=== PATIENT | female | born 1975 | race Caucasian/White ===

== ENCOUNTER 2022-11-07 18:21 | Inpatient (IN) | payer BC, MEDICAID ==
[~2022-11-07] VITALS: Ht 172.7 cm; Wt 68.2 kg
[~2022-11-07 18:21] MED LIST: HYDR-4383 PO; PHEN-716 PO; SULF1TAB49 PO
[2022-11-07] MEDS ORDERED: LORazepam 1 MG tablet PO ONE (23:00)
[2022-11-07 23:37] LABS: BASOPHILS # (AUTO) 0.1 X10'3 (0-0.2); BASOPHILS % (AUTO) 0.6 % (0-1); EOSINOPHILS % (AUTO) 0.4 % (0-6); HEMATOCRIT 41.3 % (35.0-45.0); HEMOGLOBIN 13.8 g/dl (12.0-16.0); LYMPHOCYTES # (AUTO) 1.6 X10'3 (1.1-4.8); LYMPHOCYTES % (AUTO) 13.5 % (21-51); MEAN CORPUSCULAR HEMOGLOBIN 31.9 PG (27.0-31.0); MEAN CORPUSCULAR HGB CONC 33.5 g/dL (33.0-36.5); MEAN PLATELET VOLUME 7.9 FL (7.4-10.4); MONOCYTES # (AUTO) 0.7 X10'3 (0-0.9); NEUTROPHILS # (AUTO) 9.1 X10'3 (1.8-7.7); NEUTROPHILS % (AUTO) 79.5 % (42-75); PLATELET COUNT 306 X10'3 (140-440); RED BLOOD COUNT 4.34 X10'6 (4.20-5.60); RED CELL DISTRIBUTION WIDTH 14.3 % (11.5-14.5); WHITE BLOOD COUNT 11.5 X10'3 (4.5-11.0)
[2022-11-07 23:44] LABS: ALANINE AMINOTRANSFERASE 16 U/L (12-78); ALBUMIN 3.9 G/DL (3.4-5.0); ALKALINE PHOSPHATASE 50 IU/L (46-116); ANION GAP 8 (8-16); ASPARTATE AMINO TRANSFERASE 26 U/L (10-37); BILIRUBIN,TOTAL 0.4 MG/DL (0.1-1.0); BLOOD UREA NITROGEN 6 MG/DL (7-18); BUN/CREATININE RATIO 9.7 (10.0-20.0); CALCIUM 9.5 MG/DL (8.5-10.1); CHLORIDE 101 MMOL/L (99-107); CREATININE 0.62 MG/DL (0.40-0.90); GLUCOSE 112 MG/DL (70-104); POTASSIUM 3.6 MMOL/L (3.5-5.1); SODIUM 136 MMOL/L (135-145); TOTAL CARBON DIOXIDE 27.4 MMOL/L (24-32); TOTAL PROTEIN 7.9 G/DL (6.4-8.2); eCRCL 112 ML/MIN; eGFR > 90 ML/MIN
[2022-11-07 23:56] LABS: FREE T4 (FREE THYROXINE) 1.14 NG/DL (0.73-1.40); MAGNESIUM 1.8 MG/DL (1.5-2.4); THYROID STIMULATING HORMONE 1.72 ulU/ml (0.34-4.50)
[2022-11-08] MEDS ORDERED: aspirin 325mg tablet PO ONE (00:10)
--- NOTE | 2022-11-08 00:42 | NUR ---
dr torres at bedside.
[2022-11-08] MEDS ORDERED: heparin 10,000 units/1 ML INJ IV ONE ×2 (01:00→01:10)
[2022-11-08] MEDS: heparin 25,000 UNIT/250ml bag 250 ML IV PRN ×3 (01:45→23:03)
[2022-11-08 02:14] LABS: D-DIMER 0.34 MG/L FEU (0-0.50)
[2022-11-08] MEDS ORDERED: bisacodyl 10mg suppository rectal RC PRN (02:55)
[2022-11-08] MEDS ORDERED: HYDROcodone/acetaminophen 5mg/325mg tablet PO PRN (02:55)
[2022-11-08] MEDS ORDERED: diphenhydrAMINE 25mg capsule PO PRN (02:55)
[2022-11-08] MEDS ORDERED: morphine 2 MG/ML inj. syringe IV PRN ×2 (02:55)
[2022-11-08] MEDS ORDERED: ondansetron 4mg rapidly disintigrating tab PO PRN (02:55)
[2022-11-08] MEDS ORDERED: ondansetron/PF 4mg/2ml inj IV PRN (02:55)
[2022-11-08] MEDS ORDERED: acetaminophen 325mg tablet PO PRN ×2 (02:55)
[2022-11-08] MEDS ORDERED: magnesium hydroxide 30ml (MOM) UD suspension PO PRN (02:55)
[2022-11-08] MEDS ORDERED: mag hydrox/Alum hydrox/simeth 30ml oral suspension PO PRN (02:55)
[2022-11-08] MEDS ORDERED: metoclopramide 5 mg/ml inj IV PRN (02:55)
[2022-11-08] MEDS ORDERED: diphenhydrAMINE 50 mg/ml inj IV PRN (02:55)
[2022-11-08] MEDS ORDERED: HYDROcodone/acetaminophen 10/325mg tab PO PRN (02:55)
[2022-11-08] MEDS ORDERED: acetaminophen 650mg rectal suppository RC PRN (02:55)
[2022-11-08] MEDS ORDERED: NO HOME MEDS (03:01)
[2022-11-08] MEDS: normal saline 1000ml 1,000 ML IV SCH ×3 (03:20→22:55)
[2022-11-08] MEDS ORDERED: LORazepam 1 MG tablet PO ONE (03:45)
[2022-11-08 04:21] LABS: INR 1.1 INR
[2022-11-08 04:33] LABS: CREATINE KINASE 54 U/L (26-192); LIPASE < 50 U/L (73-393); PHOSPHORUS 3.4 MG/DL (2.3-4.5); PRO BRAIN NATRIURETIC PEPTIDE 1113 PG/ML (0-125)
[2022-11-08 04:41] LABS: HEMOGLOBIN A1C 5.4 % (4.5-6.2); PROTHROMBIN TIME 11.4 SECONDS (9.0-12.0)
[2022-11-08 07:30] LABS: URINE AMPHETAMINE SCREEN POSITIVE (Neg); URINE BARBITUATE SCREEN NEGATIVE (Neg); URINE BENZODIAZEPINES SCREEN NEGATIVE (Neg); URINE CANNABINOID SCREEN NEGATIVE (Neg); URINE COCAINE SCREEN NEGATIVE (Neg); URINE METHADONE SCREEN NEGATIVE (Neg); URINE OPIATE SCREEN NEGATIVE (Neg); URINE PHENCYCLIDINE SCREEN NEGATIVE (Neg)
[2022-11-08] MEDS: pantoprazole 40mg Tablet.DR PO SCH (08:23)
[2022-11-08] MEDS: aspirin 81mg tab.chew PO SCH (08:23)
[2022-11-08] MEDS: docusate sod 100mg capsule PO SCH ×2 (08:24→20:00)
[2022-11-08] MEDS: atorvastatin 20mg tablet PO SCH (08:24)
[2022-11-08] MEDS ORDERED: metoprolol tartrate 1mg/ml inj IV PRN (09:10)
[2022-11-08] MEDS ORDERED: nitroGLYCERIN 0.4mg SUBLingual tab SL PRN (09:10)
[2022-11-08] MEDS ORDERED: aminophylline 250mg/10ml inj. IV PRN (09:10)
[2022-11-08] MEDS ORDERED: regadenoson 0.4mg/5ml syringe IV PRN (09:10)
[2022-11-08 09:31] LABS: APTT 77 SECONDS (22-32)
[2022-11-08 11:00] VITALS: BP 113/64; PULSE 93; RESP 21; TEMP 97.8; O2SAT 100
--- NOTE | 2022-11-08 11:52 | NUR ---
call nuclear med.
--- NOTE | 2022-11-08 12:27 | NUR ---
Report given to Cherise SPENCE, pt assigned room 2507D. RN aware PTT to be redrawn @1700 and with heparin gtt.
[2022-11-08 15:00] VITALS: BP 107/59; PULSE 84; RESP 17; TEMP 97.8; O2SAT 100
[2022-11-08] MEDS: heparin 10,000 units/1 ML INJ IV PRN (15:35)
[2022-11-08 19:00] VITALS: BP 107/48; PULSE 77; RESP 14; TEMP 97.8; O2SAT 98
[2022-11-08 20:00] VITALS: RESP 12; O2SAT 96
[2022-11-08] MEDS ORDERED: temazepam 15mg capsule PO PRN (21:00)
[2022-11-08 22:00] VITALS: BP 107/50; PULSE 80; RESP 12; TEMP 98; O2SAT 98
[2022-11-09] VITALS (13 sets, daily range): BP systolic 97–110; BP diastolic 38–55; PULSE 63–117; RESP 12–18; TEMP 97.6–98.7; O2SAT 96–100
--- NOTE | 2022-11-09 06:30 | NUR ---
Problems reprioritized. Patient report given, questions answered & plan of care reviewed with JORDY Luong.
--- NOTE | 2022-11-09 07:00 | NUR ---
Patient in room PCU 3011. I have received report from Yazmin SPENCE and had the opportunity to ask questions and assume patient care.
--- NOTE | 2022-11-09 07:33 | NUR ---
Patient in room PCU 3011. I have received report from Yazmin SPENCE and had the opportunity to ask questions and assume patient care.
[2022-11-09 07:35] LABS: BASOPHILS # (AUTO) 0.1 X10'3 (0-0.2); BASOPHILS % (AUTO) 0.8 % (0-1); EOSINOPHILS # (AUTO) 0.2 X10'3 (0-0.9); EOSINOPHILS % (AUTO) 2.2 % (0-6); HEMATOCRIT 39.4 % (35.0-45.0); HEMOGLOBIN 13.4 g/dl (12.0-16.0); LYMPHOCYTES # (AUTO) 1.8 X10'3 (1.1-4.8); LYMPHOCYTES % (AUTO) 23.2 % (21-51); MEAN CORPUSCULAR HEMOGLOBIN 32.5 PG (27.0-31.0); MEAN CORPUSCULAR HGB CONC 34.1 g/dL (33.0-36.5); MEAN CORPUSCULAR VOLUME 95.2 FL (78-98); MEAN PLATELET VOLUME 8.3 FL (7.4-10.4); MONOCYTES # (AUTO) 0.8 X10'3 (0-0.9); NEUTROPHILS % (AUTO) 63.8 % (42-75); PLATELET COUNT 283 X10'3 (140-440); RED BLOOD COUNT 4.13 X10'6 (4.20-5.60); RED CELL DISTRIBUTION WIDTH 14.8 % (11.5-14.5); WHITE BLOOD COUNT 7.8 X10'3 (4.5-11.0)
[2022-11-09 07:54] LABS: ALANINE AMINOTRANSFERASE 16 U/L (12-78); ALBUMIN 3.1 G/DL (3.4-5.0); ALKALINE PHOSPHATASE 44 IU/L (46-116); ANION GAP 5 (8-16); ASPARTATE AMINO TRANSFERASE 12 U/L (10-37); BILIRUBIN,TOTAL 0.3 MG/DL (0.1-1.0); BLOOD UREA NITROGEN 9 MG/DL (7-18); BUN/CREATININE RATIO 15.5 (10.0-20.0); CALCIUM 8.5 MG/DL (8.5-10.1); CHLORIDE 106 MMOL/L (99-107); CHOLESTEROL 207 MG/DL (0-200); CREATININE 0.58 MG/DL (0.40-0.90); GLUCOSE 92 MG/DL (70-104); HDL CHOLESTEROL 68 MG/DL (35-60); LDL CHOLESTEROL 113 MG/DL (50-100); POTASSIUM 3.6 MMOL/L (3.5-5.1); SODIUM 139 MMOL/L (135-145); TOTAL CARBON DIOXIDE 27.6 MMOL/L (24-32); TOTAL PROTEIN 6.3 G/DL (6.4-8.2); TRIGLYCERIDES 70 MG/DL (20-135); eCRCL 120 ML/MIN; eGFR > 90 ML/MIN
[2022-11-09] MEDS: heparin 10,000 units/1 ML INJ IV PRN (08:31)
--- NOTE | 2022-11-09 08:38 | NUR ---
Pt is off floor for [place] in [place].
[2022-11-09] MEDS ORDERED: normal saline 500ml IV soln 500 ML IV ONE (09:25)
[2022-11-09] MEDS ORDERED: regadenoson 0.4mg/5ml syringe IV PRN (09:35)
[2022-11-09] MEDS: heparin 25,000 UNIT/250ml bag 250 ML IV PRN (11:34)
[2022-11-09] MEDS: aspirin 81mg tab.chew PO SCH (11:38)
[2022-11-09] MEDS: atorvastatin 20mg tablet PO SCH (11:38)
[2022-11-09] MEDS: pantoprazole 40mg Tablet.DR PO SCH (11:38)
[2022-11-09] MEDS: docusate sod 100mg capsule PO SCH (11:38)
--- NOTE | 2022-11-09 12:07 | NUR ---
PAGER ID: [phone] MESSAGE: [phone]-Tresa Mchugh. [facility] results are in the EMR, thank you!
[2022-11-09] MEDS ORDERED: ASPI81TA53 PO (12:39)
[2022-11-09] MEDS ORDERED: ATOR20TA66 PO (12:39)
--- NOTE | 2022-11-09 13:24 | NUR ---
Pt D/C by hospitalist. Pt walked down to the lobby accompanied by family member. PIV discontinued. Tele leads removed. All belongings taken home with pt. Reviewed discharge instructions, all questions answered.
== END 2022-11-09 13:25 | disposition home or self-care (01) | DRG 282 ==
LOC: ER 18:22 → ED HOLD 11-08 02:57 → PCU 3S 11-08 12:40
PROVIDERS: ADMIT Family Medicine; ATTEND Family Medicine
PROC: 4A02XM4 Measurement of Cardiac Total Activity, External Approach (ICD-10-PCS; principal; 2022-11-09)
PROC: 3E033HZ Introduction of Radioactive Substance into Peripheral Vein, Percutaneous Approach (ICD-10-PCS; 2022-11-09)
DX: I21.4 Non-ST elevation (NSTEMI) myocardial infarction (principal); E78.00 Pure hypercholesterolemia, unspecified; G89.4 Chronic pain syndrome; R51.9 Headache, unspecified; I20.9 Angina pectoris, unspecified; I10 Essential (primary) hypertension; Z87.891 Personal history of nicotine dependence
CPT/HCPCS: 36415; 71045; 78452; 80053; 80061; 80305; 82550; 83036; 83690; 83735; 83880; 84100; 84439; 84443; 84484; 85025; 85379; 85610; 85730; 87081; 93017; 93306; 99285; A9500; G0378; J1644; J2785; J7030; J7040